=== PATIENT | male | born 1960 | race Caucasian/White ===

== ENCOUNTER 2024-03-06 11:03 | Emergency (ER) | payer OTHER, SELFPAY ==
--- NOTE | 2024-03-06 11:53 | ED.GENMED ---
History of Present Illness
General
Chief Complaint: Abdominal Pain
Source: patient
Exam Limitations: none
Time Seen by Provider: 03/06/24 11:31
Nursing documentation reviewed up to this point in time: agreed with
Travel History
Have you had any contact with someone who has COVID-19?: No
Do you have any symptoms of coronavirus? Fever > 100 degrees, chills, cough, shortness of breath, sore throat, loss of taste or smell, muscle aches, or headache?: No
History of Present Illness
History of Present Illness:
63 y/o M with no chronic medical problems
here with LLQ pain and diarrhea x 3-4 days
started with nausea and feeling of vomiting, but he took zofran so he hasn't thrown up
having about 4-5 episodes of nonbloody diarrhea daily with LLQ pain
seems better this morning but was worse last night
having to guard his abdomen and avoid sudden turns and bumps because of pain
went to urgent care and sent here
no recent travle, abx,
no h/o diverticulosis
Past History
Past History
ED Past Medical History: Psychiatric (takes Wellbutrin)
Social History
Tobacco: Non-smoker
Alcohol: None
Personal:
Living: with family
Employment: Employed (Psychiatrist)
Review of Systems
Review of Systems
Allergies reviewed?: Yes
All Other Systems: Not applicable
Phy Exam
Physical Exam
Physical Exam:
GENERAL: Alert , in no apparent distress
EYE: pupils equal and reactive
NECK: Supple
ENT: o/p clr, mmm.
CARDIAC: Regular rate and rhythm .
LUNGS: Clear breath sounds bilaterally, no acute respiratory distress, no wheezes/rales/rhonchi
ABDOMEN: Soft, mild left lower quad tendenress, mild voluntary guarding; no signfiicat rebound, no cvat, normal bowel sounds
NEUROLOGICAL: Alert and oriented, no focal neuro deficits
SKIN: Warm and dry, skin intact.
MUSCULOSKELETAL: No edema, well perfused.
PSYCH: Normal and appropriate interaction.
Course
Orders/Labs/Results
Orders:
Orders
03/06/24 11:50
CT Abd/Pel (IV only)-[facility] only Urgent
Comment:
Reason For Exam: llq pain, guarding, diarrhea, concern for divertic
0.9% Sodium Chloride 1000 ml [Nss] 1,000 ml IV BOLUS
Acetaminophen [Tylenol] 1,000 mg PO NOW STA
03/06/24 11:57
Complete Blood Count/With Diff Urgent
Comprehensive Metabolic Panel Urgent
Lactic Acid Urgent
Lipase Urgent
Urinalysis Reflex To Culture Urgent
Date Specimen was Collected: 03/06/24
Time Specimen was Collected: 11:51
03/06/24 13:33
Ketorolac [Toradol] 30 mg IV NOW STA
LevoFLOXacin [Levaquin] 750 mg PO NOW STA
MetroNIDAZOLE [Flagyl] 500 mg PO NOW STA
Abnormal Lab Results
03/06/24
11:57
WBC 11.0 H 10^3/uL
(4.8-10.8)
MCH 32.8 H pg
(27.0-31.0)
Abs Immat Gran (auto) 0.1 H 10^3/uL
(0-0.05)
Absolute Neuts (auto) 7.6 H 10^3/uL
(1.4-6.5)
Absolute Monos (auto) 0.9 H 10^3/uL
(0.1-0.6)
Immature Gran % 0.6 H %
(0-0.5)
Lymphocytes % 20.3 L %
(20.5-51.1)
Urine Ketones Trace A
(Negative)
Urine Bilirubin 1+ A
(Negative)
03/06/24 11:57
03/06/24 11:57
Vital Signs
Initial and Last Documented VS:
Initial Vital Signs
Temp Pulse Resp Pulse Ox
98.1 F 95 16 100
03/06/24 11:14 03/06/24 11:14 03/06/24 11:14 03/06/24 11:14
Last Documented Vital Signs
Temp Pulse Resp BP Pulse Ox
98.1 F 95 16 124/89 93
03/06/24 11:14 03/06/24 11:14 03/06/24 11:14 03/06/24 12:00 03/06/24 12:30
MDM/Problems Addressed
Differential Diagnosis Includes:
diverticulitis, perforation, kidney stone
MDM/Problems Addressed:
63 y/o M with no sig pmh
3-4 days llq pain and diarrhea
nonbloody
pain worse with movement
went to urgent care, concerned for mild gurading, sent for CT
afebrile, nontoxic
not significantly tender, minimal voluntary guarindg, no rebound
labx reassuring
ct shows umpcomlicated diverticulitis
pain controleld, mild hwill give toradol
levaquin, flagyl
return precautions
*Critical Care Note
Total Time (30-74mins, 75-104mins- exclusive of procedures): Not Applicable
ED Attending Note
-
Portions of this chart may have been created with voice recognition software.� Occasional wrong word or��sound alike� substitutions may have occurred due to the inherent limitations of voice recognition software.
Discharge Plan
Departure
Patient Disposition: Home (Routine Discharge)
Date of Disposition: 03/06/24
Time of Disposition: 13:16
Patient with high blood pressure during this ER visit?: No
Condition: Fair
Covid-19: Not Applicable
Discharge Problem:
Diverticulitis
Instructions: Clear Liquid Diet, Diverticulitis (DC)
Prescriptions:
New
levofloxacin 750 mg tablet
750 mg PO DAILY Qty: 7 0RF
metronidazole 500 mg tablet
500 mg PO TID Qty: 21 0RF
No Action
prednisone 50 MG tablet
50 mg PO DAILY Qty: 4 0RF
albuterol sulfate [Albuterol Sulfate HFA] 18 GM HFA aerosol inhaler
18 gm inhalation Q4 Qty: 1 0RF
benzonatate 100 MG capsule
100 mg PO TIDPRN PRN (Reason: cough) Qty: 14 0RF
codeine-guaifenesin [Guaiatussin AC] 10 ML liquid
10 ml PO Q6HPRN PRN (Reason: cough) Qty: 10 0RF
prednisone 20 MG tablet
40 mg PO DAILY Qty: 6 0RF
Referrals:
Anahy Arnold MD [Active] - Follow up in 1 week (gi)
Maria Isabel Waldrop DO [Family Provider] - Follow up in 2-3 days
Activity Restrictions/Additional Instructions:
YOUR CAT SCAN SHOWS UNCOMPLICATED DIVERTICULITIS
YOU SHOULD TRY CLEAR LIQUID DIET TODAY AND ADVANCE TOLERATED TO BLAND FOOD TOMORROW
FOR PAIN YOU CAN USE TYLENOL AND MOTRIN FOR PAIN
TAKE FLAGYL 3 TIMES A DAY FOR 7 DAYS
TAKE LEVAQUIN 1 TAB A DAY FOR 7 DAYS
AVOID HEAVY LIFTING AND EXERCISING WHILE ON THIS MEDICATIONS
ALSO AVOID ALCOHOL WHILE ON FLAGYL
RETURN FOR: WORSENIGN PAIN, FEVER, VOMITING, OR ANY CONCERNS
OTHERWISE FOLLOW UP WITH YOUR FAMILY DOCTOR AND SEE A GI AN OUTPATIENT
Interventions
Interventions:
*General Assessment Last Done: 03/06/24 11:14
*ED COVID-19 Vaccine History Last Done: 03/06/24 11:14
*Nursing Disposition Last Done: 03/06/24 14:00
HI-Kcqaiy-Hboecyamcy Assessment Last Done: 03/06/24 12:06
Discharge Date and Time
Discharge Date/Time: 03/06/24 14:01
Print Language: GREEK
[2024-03-06] MEDS: TYLENOL 1000 MG PO (11:56)
[2024-03-06] MEDS: NSS 1000 IV (11:56)
[2024-03-06 12:00] VITALS: BP 124/89
[2024-03-06 12:11] LABS: % Basophils 0.5 % (0-2); % Eosinophils 1.8 % (0-6); % Immature Granulocytes 0.6 % (0-0.5); % Lymphocytes 20.3 % (20.5-51.1); % Monocytes 7.9 % (1.7-9.3); % Neutrophils 68.9 % (42.2-75.2); Absolute Basophils 0.1 10^3/uL (0-0.2); Absolute Eosinophils 0.2 10^3/uL (0-0.7); Absolute Immature Granulocytes 0.1 10^3/uL (0-0.05); Absolute Lymphocytes 2.2 10^3/uL (1.2-3.4); Absolute Monocytes 0.9 10^3/uL (0.1-0.6); Absolute Neutrophils 7.6 10^3/uL (1.4-6.5); Hematocrit 44.2 % (39.0-52.0); Hemoglobin 15.7 g/dL (13.0-18.0); Mean Corp Hgb Conc. 35.5 g/dL (33.0-37.0); Mean Corpuscular Hgb 32.8 pg (27.0-31.0); Mean Corpuscular Volume 92.3 fL (80.0-94.0); Nucleated Red Blood Cells % 0 % (-); Platelet Count 255 10^3/uL (130-400); Red Blood Cell Count 4.79 10^6/uL (4.70-6.10); Red Cell Dist. Width 12.1 % (11.5-14.5)
[2024-03-06 12:15] LABS: Urine Albumin Trace (Neg - Trace); Urine Bilirubin 1+ (Negative); Urine Character Clear (Clear); Urine Color Yellow; Urine Glucose Negative (Negative); Urine Ketone Trace (Negative); Urine Leukocyte Negative (Negative); Urine Nitrite Negative (Negative); Urine Occult Blood Negative (Negative); Urine Urobilinogen Negative (Neg - 1+)
[2024-03-06 12:19] LABS: Lactic Acid 0.8 mmol/L (0.7-2.0)
[2024-03-06 12:27] LABS: ALT (SGPT) 31 U/L (0-50); AST (SGOT) 24 U/L (17-59); Albumin 4.1 g/dl (3.5-5.0); Alkaline Phosphatase 71 U/L (38-126); Blood Urea Nitrogen 17 mg/dl (9-20); Calcium 8.9 mg/dl (8.4-10.2); Carbon Dioxide 23 mmol/L (22-30); Chloride 106 mmol/L (98-107); Glucose 96 mg/dl (70-99); Lipase 198 U/L (23-300); Potassium 3.7 mmol/L (3.5-5.1); Sodium 138 mmol/L (135-145); Total Bilirubin 0.7 mg/dl (0.2-1.3); Total Protein 6.9 g/dl (6.3-8.2); eGFR > 60.00
[2024-03-06] MEDS: LEVAQUIN 750 MG PO (13:37)
[2024-03-06] MEDS: FLAGYL 500 MG PO (13:37)
[2024-03-06] MEDS: TORADOL 30 MG IV (13:37)
== END 2024-03-06 14:01 | disposition home or self-care (01) ==
LOC: EMR 11:03
PROVIDERS: Physician Assistant; EMERGENCY PHYSICIAN Student in an Organized Health Care Education/Training Program; FAMILY PHYSICIAN Family Medicine
DX: K57.32 Diverticulitis of large intestine without perforation or abscess without bleeding (principal); F41.9 Anxiety disorder, unspecified; M43.22 Fusion of spine, cervical region; Z87.891 Personal history of nicotine dependence; Z88.0 Allergy status to penicillin; Z88.2 Allergy status to sulfonamides; Z91.048 Other nonmedicinal substance allergy status
CPT/HCPCS: 99285; 96361; 96374; 74177; 80053; 81003; 83605; 83690; 85025; Q9967